=== PATIENT | male | born 1970 | race Caucasian/White ===

== ENCOUNTER 2020-11-13 05:25 | Inpatient (IN) | payer BC ==
[2020-11-07 14:08] LABS: BASOPHILS # (AUTO) 0.1 X10'3 (0-0.2); BASOPHILS % (AUTO) 0.8 % (0-1); EOSINOPHILS # (AUTO) 0.2 X10'3 (0-0.9); EOSINOPHILS % (AUTO) 3.6 % (0-6); LYMPHOCYTES # (AUTO) 1.9 X10'3 (1.1-4.8); LYMPHOCYTES % (AUTO) 29.8 % (21-51); MEAN CORPUSCULAR HEMOGLOBIN 19.9 PG (27.0-31.0); MEAN CORPUSCULAR HGB CONC 30.3 g/dL (33.0-36.5); MEAN CORPUSCULAR VOLUME 65.7 FL (78-98); MEAN PLATELET VOLUME 7.3 FL (7.4-10.4); MONOCYTES # (AUTO) 0.8 X10'3 (0-0.9); MONOCYTES % (AUTO) 12.9 % (2-12); NEUTROPHILS # (AUTO) 3.3 X10'3 (1.8-7.7); NEUTROPHILS % (AUTO) 52.9 % (42-75); PRE OP HEMOGLOBIN 11.2 g/dL (14.0-17.9); PRE OP PLATELET COUNT 383 X10'3 (140-440); RED BLOOD COUNT 5.63 X10'6 (4.70-6.10); RED CELL DISTRIBUTION WIDTH 17.9 % (11.5-14.5)
[2020-11-07 14:14] LABS: CLARITY,URINE CLEAR (Clear); COLOR,URINE YELLOW (Yellow); GLUCOSE, URINE >=1000 mg/dl (Neg); KETONES,URINE NEGATIVE (Neg); LEUKOCYTE ESTERASE ,URINE NEGATIVE (Neg); NITRITES, URINE NEGATIVE (Neg); OCCULT BLOOD,URINE NEGATIVE (Neg); PH,URINE 5.5 (4.8-8.0); PROTEIN,URINE NEGATIVE (Neg); UROBILINOGEN,URINE 0.2 E.U/dL (0.2-1.0)
[2020-11-07 14:21] LABS: UA COLLECTION TYPE CLN CATCH MIDSTREAM
[2020-11-07 14:22] LABS: PRE OP PROTIME 10.5 SECONDS (9.0-12.0)
[2020-11-07 14:24] LABS: BACTERIA,URINE FEW /HPF (Neg); RBC,URINE 0-2 /HPF (0-2); SQUAMOUS EPITHELIAL CELL,UR FEW /LPF (FEW); WBC,URINE 0-4 /HPF (0-4)
[2020-11-07 14:25] LABS: PLATELET ESTIMATE NORMAL
[2020-11-07 14:26] LABS: ANISOCYTOSIS 1+; MICROCYTOSIS 2+; POLYCHROMASIA FEW
[2020-11-07 14:27] LABS: ELLIPTOCYTES FEW; STOMATOCYTES 1+
[2020-11-07 14:28] LABS: SCHISTOCYTES FEW
[2020-11-07 14:52] LABS: BLOOD UREA NITROGEN 14 MG/DL (7-18); BUN/CREATININE RATIO 12.8 (5.4-32.0); CALCIUM 8.5 MG/DL (8.5-10.1); CHLORIDE 102 MMOL/L (99-107); CREATININE 1.09 MG/DL (0.60-1.10); PRE OP ANION GAP 10 (8-16); PRE OP GLUCOSE 83 MG/DL (70-104); PRE OP POTASSIUM 4.2 MMOL/L (3.4-5.1); PRE OP SODIUM 138 MMOL/L (135-145); TOTAL CARBON DIOXIDE 25.9 MMOL/L (24-32); eGFR 72 ML/MIN
[2020-11-07 15:51] LABS: ALBUMIN/GLOBULIN RATIO 1.2 (1.1-1.5); ALKALINE PHOSPHATASE 43 IU/L (46-116); PRE OP AST 31 U/L (10-37); PRE OP BILIRUB, TOTAL 0.4 MG/DL (0.0-1.0); TOTAL PROTEIN 7.4 G/DL (6.4-8.2)
[2020-11-07 16:00] LABS: HEMOGLOBIN A1C 5.7 % (4.5-6.2)
[2020-11-07 16:01] LABS: PRE OP ALT 88 U/L (30-65)
[2020-11-11 08:33] LABS: ABG BASE EXCESS 0.1 mmol/L (-2.0-2.0); ABG HCO3 24.3 mmol/L (22.0-26.0); ABG OXYGEN SATURATION 96.2 % (94-97); ABG PCO2 (T) 37.6 mmHg (35.0-48.0); ABG PO2 (T) 84.8 mmHg (75.0-100.0); ALLEN'S TEST POSITIVE; FCOHb 1.1 % (0.0-3.9); FMetHb 0.3 % (0.0-1.5); FO2Hb 94.9 % (94-97); TOTAL HEMOGLOBIN 11.6 G/dl (14.0-18.0)
[2020-11-13] VITALS (15 sets, daily range): BP systolic 82–124; BP diastolic 49–82
[~2020-11-13] VITALS: Ht 175.3 cm; Wt 91.7 kg
[~2020-11-13 05:25] MED LIST: AMPH10TA2 PO; ANAS1TAB10 PO; BUPR300T6 PO; DAPA10TA PO; ERGO50002 PO; LORA-512 PO; METF-950 PO
[2020-11-13] MEDS ORDERED: famotidine 20mg tablet PO ONE (05:30)
[2020-11-13] MEDS ORDERED: cefazolin/dext.iso 2gm/100ml IV ONE (05:30)
[2020-11-13] MEDS ORDERED: MESSAGE TO NURSING IV ONE (05:30)
[2020-11-13] MEDS: ringers solution, lacted 1,000 ML IV SCH (06:04)
[2020-11-13] MEDS ORDERED: scopolamine 1.5mg patch.TD72 (72-hour patch) TD ONE (07:55)
[2020-11-13] MEDS ORDERED: scopolamine 1mg/72 hr patch TD ONE (08:00)
[2020-11-13] MEDS ORDERED: BUPIVAcaine/PF 2.5 mg/ml (0.25%) 30ml vial ONE (11:04)
[2020-11-13] MEDS ORDERED: fentaNYL /PF 50mcg/ml 5ml ampule ONE (12:29)
[2020-11-13] MEDS ORDERED: midazolam 1 mg/ML 2ml injection ONE (12:29)
[2020-11-13] MEDS ORDERED: propofol inj 20 ML IV ONE (14:03)
[2020-11-13] MEDS ORDERED: dexamethasone sod phosphate 4mg/ml inj. ONE (14:03)
[2020-11-13] MEDS ORDERED: neostigmine methylsulfate 1 MG/ML 10ml vial ONE (14:03)
[2020-11-13] MEDS ORDERED: glycopyrrolate 0.2mg/ml inj ONE (14:03)
[2020-11-13] MEDS ORDERED: ondansetron/PF 4mg/2ml inj ONE (14:03)
[2020-11-13] MEDS ORDERED: albumin (Human) 5% 250ml 250 ML IV ONE (14:03)
[2020-11-13] MEDS ORDERED: rocuronium 10mg/ml inj IV ONE (14:03)
[2020-11-13] MEDS ORDERED: acetaminophen 1,000mg/100ml IV 100 ML IV ONE (14:03)
[2020-11-13] MEDS ORDERED: LIDOcaine 2% (20mg/ml) 5ml vial ONE (14:03)
[2020-11-13] MEDS ORDERED: ondansetron/PF 4mg/2ml inj IV PRN (14:20)
[2020-11-13] MEDS ORDERED: morphine 4 MG/ML inj SYRINge IV PRN ×2 (14:20)
[2020-11-13] MEDS ORDERED: metoclopramide 5 mg/ml inj IV PRN (14:20)
[2020-11-13] MEDS ORDERED: HYDROcodone/acetaminophen 10/325mg tab PO PRN (14:20)
[2020-11-13] MEDS ORDERED: albuterol 2.5 MG/3 ML nebule NEB PRN ×2 (14:20)
[2020-11-13] MEDS ORDERED: magnesium hydroxide 30ml (MOM) UD suspension PO PRN (14:20)
--- NOTE | 2020-11-13 14:20 | NUR ---
Received from OR via SURGICAL BED, accompanied by Anesthesiologist and report given by Anesthesiolgist. PT AROUSES EASILY, PLACED ON O2 MONITOR, S/P RIGHT VATS, BX LUNG, RESECTION PERICARDIAL CYST, PT HAS LATERAL CHEST DRESSINGS WITH SCANT DRINAGE NOTED TO SINGLE CHEST TUBE EXIT SITE, CHEST TUBE SET TO LOW/MED SUCTION NOT DRAINAGE IN TUBE, SCDS, PT HAS RIGHT NECK CVL, 18G PIV IN LEFT FOREARM, PT SNORING, DENIES ANY PAIN OR NAUSEA AT THIS TIME, WILL CONT TO ASSESS.
[2020-11-13] MEDS ORDERED: meperidine/PF 25mg/ml syringe ONE (14:22)
[2020-11-13 15:37] LABS: ABG BASE EXCESS -1.8 mmol/L (-2.0-2.0); ABG HCO3 23.7 mmol/L (22.0-26.0); ABG OXYGEN SATURATION 97.6 % (94-97); ABG PCO2 (T) 43.4 mmHg (35.0-48.0); ABG PO2 (T) 108.1 mmHg (75.0-100.0); FCOHb 0.6 % (0.0-3.9); FLOW 3 L/min; FMetHb 0.2 % (0.0-1.5); FO2Hb 96.8 % (94-97); TOTAL HEMOGLOBIN 10.8 G/dl (14.0-18.0)
--- NOTE | 2020-11-13 15:40 | NUR ---
Report called to receiving nurse. Transferred via [facility] BW[facility] TO ROOM 307 Belongings . Special Issues communicated to receiving nurse.
[2020-11-13] MEDS: ceFAZolin inj. 1,000 MG in dextrose 5%-water 50ml 50 ML IV SCH (16:28)
[2020-11-13 16:40] LABS: BASOPHILS % (AUTO) 0.4 % (0-1); EOSINOPHILS % (AUTO) 0.3 % (0-6); HEMATOCRIT 33.8 % (42.0-52.0); LYMPHOCYTES # (AUTO) 0.9 X10'3 (1.1-4.8); LYMPHOCYTES % (AUTO) 7.6 % (21-51); MEAN CORPUSCULAR HEMOGLOBIN 19.7 PG (27.0-31.0); MEAN CORPUSCULAR HGB CONC 29.7 g/dL (33.0-36.5); MEAN CORPUSCULAR VOLUME 66.3 FL (78-98); MEAN PLATELET VOLUME 7.3 FL (7.4-10.4); MONOCYTES # (AUTO) 0.2 X10'3 (0-0.9); NEUTROPHILS # (AUTO) 10.1 X10'3 (1.8-7.7); NEUTROPHILS % (AUTO) 89.7 % (42-75); PLATELET COUNT 304 X10'3 (140-440); RED BLOOD COUNT 5.11 X10'6 (4.70-6.10); RED CELL DISTRIBUTION WIDTH 18.1 % (11.5-14.5); WHITE BLOOD COUNT 11.3 X10'3 (4.5-11.0)
[2020-11-13 16:47] LABS: ALBUMIN 3.5 G/DL (3.4-5.0); ANION GAP 9 (8-16); BLOOD UREA NITROGEN 14 MG/DL (7-18); BUN/CREATININE RATIO 12.6 (5.4-32.0); CALCIUM 7.2 MG/DL (8.5-10.1); CHLORIDE 106 MMOL/L (99-107); CREATININE 1.11 MG/DL (0.60-1.10); GLUCOSE 109 MG/DL (70-104); POTASSIUM 4.8 MMOL/L (3.5-5.1); SODIUM 140 MMOL/L (135-145); eGFR 70 ML/MIN
--- NOTE | 2020-11-13 17:08 | NUR ---
RECEIVED PT ONTO UNIT. ORIENTED TO ROOM. PT ARTERIAL LINE AND CVP LINE HOOKED UP TO MONITOR. INITIAL VITAL SIGNS TAKEN. CHEST TUBE HOOKED TO SUCTION. CHEST TUBE CONTAINER ON RIGH TOF BED TAPED TO FLOOR. XIE PATENT. PAIN MEDICATION GIVEN. AT BEDSIDE. SBAR UPDATED. WILL CONTINUE TO MONITOR
[2020-11-13 17:24] LABS: ANISOCYTOSIS 2+; MICROCYTOSIS 2+; PLATELET ESTIMATE NORMAL; POLYCHROMASIA FEW
--- NOTE | 2020-11-13 18:00 | NUR ---
Patient in room MED 307. I have received report from DANIEL Ordoñez and had the opportunity to ask questions and assume patient care.
[2020-11-13] MEDS ORDERED: MESSAGE TO PHARMACY PO ONE (20:00)
[2020-11-13] MEDS ORDERED: dextrose 50%-water 50ml dispensing syringe IV PRN ×2 (20:00)
[2020-11-13] MEDS ORDERED: dextrose ORAL solution 15 GM/59 ML bottle PO PRN ×2 (20:00)
[2020-11-13] MEDS ORDERED: insulin Lispro (HumaLOG) vial - multi-dose SQ SCH (20:00)
[2020-11-13] MEDS ORDERED: glucagon, human recombinant 1mg kit SUBCUT PRN (20:00)
[2020-11-13] MEDS: insulin glargine (Lantus) pen - multi-dose SQ SCH (21:00)
[2020-11-13] MEDS: ketorolac tromethamine 15mg/ml inj. IV SCH (21:33)
[2020-11-13] MEDS: gabapentin 300mg capsule PO SCH (21:34)
[2020-11-13] MEDS: docusate sod 100mg capsule PO SCH (21:34)
[2020-11-13] MEDS: HYDROcodone/acetaminophen 10/325mg tab PO PRN (21:44)
[2020-11-14] MEDS: ceFAZolin inj. 1,000 MG in dextrose 5%-water 50ml 50 ML IV SCH (00:46)
[2020-11-14] MEDS: ringers solution, lacted 1,000 ML IV SCH (00:50)
[2020-11-14 02:00] VITALS: BP 105/52
[2020-11-14] MEDS: ketorolac tromethamine 15mg/ml inj. IV SCH ×3 (03:15→13:51)
[2020-11-14 04:26] LABS: BASOPHILS # (AUTO) 0.1 X10'3 (0-0.2); BASOPHILS % (AUTO) 0.4 % (0-1); EOSINOPHILS % (AUTO) 0 % (0-6); HEMATOCRIT 33.3 % (42.0-52.0); HEMOGLOBIN 10.2 g/dl (14.0-17.9); LYMPHOCYTES # (AUTO) 1.1 X10'3 (1.1-4.8); LYMPHOCYTES % (AUTO) 8.3 % (21-51); MEAN CORPUSCULAR HGB CONC 30.6 g/dL (33.0-36.5); MEAN CORPUSCULAR VOLUME 65.1 FL (78-98); MONOCYTES % (AUTO) 7.3 % (2-12); NEUTROPHILS # (AUTO) 11.2 X10'3 (1.8-7.7); PLATELET COUNT 317 X10'3 (140-440); RED BLOOD COUNT 5.12 X10'6 (4.70-6.10); RED CELL DISTRIBUTION WIDTH 17.9 % (11.5-14.5); WHITE BLOOD COUNT 13.4 X10'3 (4.5-11.0)
[2020-11-14 04:48] LABS: ALANINE AMINOTRANSFERASE 65 U/L (12-78); ALBUMIN 3.4 G/DL (3.4-5.0); ALBUMIN/GLOBULIN RATIO 1.2 (1.1-1.5); ALKALINE PHOSPHATASE 28 IU/L (46-116); ANION GAP 6 (8-16); ASPARTATE AMINO TRANSFERASE 35 U/L (10-37); BILIRUBIN,TOTAL 0.7 MG/DL (0.1-1.0); BLOOD UREA NITROGEN 17 MG/DL (7-18); BUN/CREATININE RATIO 15.6 (5.4-32.0); CALCIUM 7.6 MG/DL (8.5-10.1); CHLORIDE 103 MMOL/L (99-107); CREATININE 1.09 MG/DL (0.60-1.10); GLUCOSE 109 MG/DL (70-104); POTASSIUM 4.2 MMOL/L (3.5-5.1); SODIUM 136 MMOL/L (135-145); TOTAL CARBON DIOXIDE 27.2 MMOL/L (24-32); TOTAL PROTEIN 6.2 G/DL (6.4-8.2); eGFR 72 ML/MIN
[2020-11-14 05:16] LABS: PLATELET ESTIMATE NORMAL
[2020-11-14 05:17] LABS: ANISOCYTOSIS 1+; MICROCYTOSIS 2+
[2020-11-14 06:00] VITALS: BP 105/52
--- NOTE | 2020-11-14 06:00 | NUR ---
Problems reprioritized. Patient report given, questions answered & plan of care reviewed with DANIEL Ordoñez.
[2020-11-14] MEDS: docusate sod 100mg capsule PO SCH ×2 (07:50→19:47)
[2020-11-14] MEDS: gabapentin 300mg capsule PO SCH ×2 (07:50→19:45)
[2020-11-14] MEDS: anastrozole 1 MG tablet PO SCH (07:50)
[2020-11-14] MEDS: buPROPion SR 150mg tablet PO SCH ×2 (07:51→19:45)
[2020-11-14] MEDS: loratadine 10mg tablet PO SCH (07:51)
--- NOTE | 2020-11-14 10:19 | NUR ---
RECEIVED ORDERS TO DC LINES EXCEPT PIV. NO S/S OF COMPLICATIONS WITH LINE REMOVAL. PRESSURE APPLIED TO ART AND CENTRAL LINE BEFORE DRESSING APPLIED. WILL CONTINUE TO MONITOR.
[2020-11-14 11:00] VITALS: BP 127/67
[2020-11-14] MEDS: HYDROcodone/acetaminophen 10/325mg tab PO PRN ×2 (13:51→19:47)
[2020-11-14 15:00] VITALS: BP 112/75
[2020-11-14 16:10] LABS: ALBUMIN 3.3 G/DL (3.4-5.0); ANION GAP 4 (8-16); BLOOD UREA NITROGEN 17 MG/DL (7-18); BUN/CREATININE RATIO 13.6 (5.4-32.0); CALCIUM 7.8 MG/DL (8.5-10.1); CHLORIDE 105 MMOL/L (99-107); CREATININE 1.25 MG/DL (0.60-1.10); GLUCOSE 89 MG/DL (70-104); POTASSIUM 3.6 MMOL/L (3.5-5.1); SODIUM 138 MMOL/L (135-145); TOTAL CARBON DIOXIDE 28.7 MMOL/L (24-32); eGFR 61 ML/MIN
[2020-11-14 18:00] VITALS: BP 107/56
--- NOTE | 2020-11-14 18:00 | NUR ---
Patient in room MED 307. I have received report from Griselda and had the opportunity to ask questions and assume patient care.
[2020-11-14] MEDS: insulin glargine (Lantus) pen - multi-dose SQ SCH (21:00)
[2020-11-14 22:00] VITALS: BP 106/58
[2020-11-15 02:00] VITALS: BP 115/65
[2020-11-15] MEDS: HYDROcodone/acetaminophen 10/325mg tab PO PRN (05:16)
[2020-11-15 06:00] VITALS: BP 104/64
--- NOTE | 2020-11-15 06:07 | NUR ---
Problems reprioritized. Patient report given, questions answered & plan of care reviewed with anisha-jade.
[2020-11-15 06:34] LABS: BASOPHILS % (AUTO) 0.4 % (0-1); EOSINOPHILS # (AUTO) 0.2 X10'3 (0-0.9); EOSINOPHILS % (AUTO) 2.6 % (0-6); HEMATOCRIT 33.3 % (42.0-52.0); HEMOGLOBIN 10.2 g/dl (14.0-17.9); LYMPHOCYTES # (AUTO) 1.7 X10'3 (1.1-4.8); LYMPHOCYTES % (AUTO) 20.2 % (21-51); MEAN CORPUSCULAR HGB CONC 30.5 g/dL (33.0-36.5); MEAN CORPUSCULAR VOLUME 65.4 FL (78-98); MEAN PLATELET VOLUME 7.5 FL (7.4-10.4); MONOCYTES # (AUTO) 0.9 X10'3 (0-0.9); NEUTROPHILS # (AUTO) 5.6 X10'3 (1.8-7.7); NEUTROPHILS % (AUTO) 65.8 % (42-75); PLATELET COUNT 294 X10'3 (140-440); RED BLOOD COUNT 5.09 X10'6 (4.70-6.10); RED CELL DISTRIBUTION WIDTH 17.9 % (11.5-14.5); WHITE BLOOD COUNT 8.5 X10'3 (4.5-11.0)
[2020-11-15 06:44] LABS: ALANINE AMINOTRANSFERASE 53 U/L (12-78); ALBUMIN 3.2 G/DL (3.4-5.0); ALBUMIN/GLOBULIN RATIO 1.1 (1.1-1.5); ALKALINE PHOSPHATASE 27 IU/L (46-116); ANION GAP 4 (8-16); ASPARTATE AMINO TRANSFERASE 21 U/L (10-37); BILIRUBIN,TOTAL 0.4 MG/DL (0.1-1.0); BLOOD UREA NITROGEN 18 MG/DL (7-18); BUN/CREATININE RATIO 16.1 (5.4-32.0); CALCIUM 7.6 MG/DL (8.5-10.1); CHLORIDE 106 MMOL/L (99-107); CREATININE 1.12 MG/DL (0.60-1.10); GLUCOSE 90 MG/DL (70-104); MAGNESIUM 2.2 MG/DL (1.5-2.4); POTASSIUM 4.2 MMOL/L (3.5-5.1); SODIUM 139 MMOL/L (135-145); TOTAL CARBON DIOXIDE 28.6 MMOL/L (24-32); TOTAL PROTEIN 6.2 G/DL (6.4-8.2); eGFR 70 ML/MIN
[2020-11-15 07:10] LABS: ANISOCYTOSIS 1+; MICROCYTOSIS 2+; PLATELET ESTIMATE NORMAL
[2020-11-15 07:11] LABS: HYPOCHROMASIA 1+; POLYCHROMASIA 1+
[2020-11-15] MEDS: loratadine 10mg tablet PO SCH (07:31)
[2020-11-15] MEDS: buPROPion SR 150mg tablet PO SCH (07:31)
[2020-11-15] MEDS: docusate sod 100mg capsule PO SCH (07:31)
[2020-11-15] MEDS: gabapentin 300mg capsule PO SCH (07:31)
[2020-11-15] MEDS: anastrozole 1 MG tablet PO SCH (07:32)
[2020-11-15] MEDS ORDERED: HYDR-3972 PO (08:20)
[2020-11-15 11:53] LABS: ALBUMIN 3.4 G/DL (3.4-5.0); ANION GAP 6 (8-16); BLOOD UREA NITROGEN 18 MG/DL (7-18); BUN/CREATININE RATIO 15.3 (5.4-32.0); CALCIUM 8.3 MG/DL (8.5-10.1); CHLORIDE 105 MMOL/L (99-107); CREATININE 1.18 MG/DL (0.60-1.10); GLUCOSE 83 MG/DL (70-104); SODIUM 140 MMOL/L (135-145); TOTAL CARBON DIOXIDE 28.6 MMOL/L (24-32); eGFR 66 ML/MIN
--- NOTE | 2020-11-15 13:17 | NUR ---
DISCHARGE TEACHING COMPLETED. ALL QUESTIONS ANSWERED. COPY PLACED IN CHART. IV AND TELE DISCONTINUED. NO S/S OF COMPLICATIONS. ALL BELONGINGS WITH PT. PT WALKED DOWN WITH RN TO LOBBY TO PRIVATE VEHICLE.
== END 2020-11-15 13:17 | disposition home or self-care (01) | DRG 272 ==
LOC: UNDOADMIN 05:25 → PAS IN 05:25 → MED 3N 15:45 → PAS IN 15:45
PROVIDERS: ADMIT Thoracic Surgery (Cardiothoracic Vascular Surgery); ATTEND Thoracic Surgery (Cardiothoracic Vascular Surgery)
PROC: 0BTC4ZZ Resection of Right Upper Lung Lobe, Percutaneous Endoscopic Approach (ICD-10-PCS; 2020-11-13)
PROC: 0BTF4ZZ Resection of Right Lower Lung Lobe, Percutaneous Endoscopic Approach (ICD-10-PCS; 2020-11-13)
PROC: 0BTD4ZZ Resection of Right Middle Lung Lobe, Percutaneous Endoscopic Approach (ICD-10-PCS; 2020-11-13)
PROC: 02BN4ZZ Excision of Pericardium, Percutaneous Endoscopic Approach (ICD-10-PCS; principal; 2020-11-13 12:30)
DX: I31.8 Other specified diseases of pericardium (principal); R91.8 Other nonspecific abnormal finding of lung field; E11.9 Type 2 diabetes mellitus without complications; G47.33 Obstructive sleep apnea (adult) (pediatric); J45.909 Unspecified asthma, uncomplicated; Z83.3 Family history of diabetes mellitus
CPT/HCPCS: Z7506; Z7508; 36415; 36600; 71045; 71046; 80048; 80053; 81001; 82803; 82948; 83036; 83735; 85008; 85018; 85025; 85610; 85730; 86885; 86900; 86901; 87070; 87075; 87081; 87102; 93005; 94640; 94760; 97116; 97162; 97530; A4215; A4618; A6449; A7000; A7048; C1758; G0378; J0131; J0690; J1100; J1815; J1885; J2001; J2175; J2250; J2405; J2704; J2710; J3010; J3490; J7040; J7060; J7120; P9045; U0003; U0005

== ENCOUNTER → 2020-11-22 | Outpatient (CLI) | payer BC ==
[~2020-11-22] MED LIST changes: +HYDR-3972 PO
== END | disposition home or self-care (01) ==
LOC: RAD 07:48
PROVIDERS: ATTEND Thoracic Surgery (Cardiothoracic Vascular Surgery)
DX: M48.54XA Collapsed vertebra, not elsewhere classified, thoracic region, initial encounter for fracture (principal); Q24.8 Other specified congenital malformations of heart
CPT/HCPCS: 71046

== ENCOUNTER 2021-12-29 01:24 | Emergency (ER) | payer BC ==
[~2021-12-29 01:24] MED LIST changes: +METF-1203 PO; -METF-950 PO
== END 2021-12-29 02:56 | disposition left against medical advice (07) ==
LOC: ER 01:25
DX: K08.89 Other specified disorders of teeth and supporting structures (principal); Z53.21 Procedure and treatment not carried out due to patient leaving prior to being seen by health care provider